=== PATIENT | male | born 1995 | race Caucasian/White ===

== ENCOUNTER 2020-05-12 14:39 | Emergency (ER) | payer OTHER, SELFPAY ==
--- NOTE | ~2020-05-12 | XR_ITS ---
XR ribs LT 2V w CXR 2V DATE: 05/12/2020 15:02 INDICATION: Fall. Left chest abrasion, left rib pain TECHNIQUE: PA and lateral chest. 3 views of the left ribs. COMPARISON: 07/04/2018 bilateral ribs with two-view chest radiograph FINDINGS: Normal heart size. No hilar or mediastinal enlargement. No pulmonary infiltrate or consolid ation, pleural effusion or pulmonary vascular congestion or pneumothorax. No left rib fracture is detected. IMPRESSION: Negative Reviewed, dictated and finalized at location A. IMPRESSION: Negative
--- NOTE | ~2020-05-12 | XR_ITS ---
EXAMINATION: XR hip LT min 3V w AP pelvis EXAM DATE: 05/12/2020 15:02 INDICATION: Fall, left hip pain. TECHNIQUE: Left hip frontal, crosstable lateral and 'frog-leg' projections for interpretation. Fronta l projection pelvis. There is no prior study for comparison. FINDINGS: Smooth left hip femoral head contour, no radiographic evidence of avascular necrosis. Ther e are no acute fractures or dislocations identified. There is no subcutaneous gas. The soft tissue is unremarkable. There are no radiopaque foreign bodies. IMPRESSION: 1. Pelvis, left hip exam without acute osseous findings. Reviewed, dictated and finalized at location A.
[2020-05-12 14:43] VITALS: BP 123/83; PULSE 98; RESP 20; TEMP 35.6; O2SAT 99
--- NOTE | 2020-05-12 14:46 | ED.GENADULT ---
HPI - General Adult General Chief complaint: Unspecified Stated complaint: Fall/L Rib and Side Pain Time Seen by Provider: 05/12/20 14:45 Related Data Allergies Allergy/AdvReac Type Severity Reaction Status Date / Time clotrimazole Allergy Mild Swelling Verified 06/15/19 06:32 tolnaftate Allergy Mild Swelling Verified 06/15/19 06:32 bee Allergy Intermediate rash\ Uncoded 03/14/18 11:12 shellfish Allergy Intermediate rash Uncoded 03/14/18 11:12
--- NOTE | 2020-05-12 16:03 | ED.GENADULT ---
HPI - General Adult General Chief complaint: Unspecified <Denice Ramos PA-C - Last Filed: 05/12/20 16:12> Stated complaint: Fall/L Rib and Side Pain <Denice Ramos PA-C - Last Filed: 05/12/20 16:12> Time Seen by Provider: 05/12/20 14:45 <Denice Ramos PA-C - Last Filed: 05/12/20 16:12> Source: patient <CIRA Bingham Last Filed: 05/12/20 16:12> Mode of arrival: ambulatory <CIRA Bingham Last Filed: 05/12/20 16:12> Limitations: no limitations <CIRA Bingham Last Filed: 05/12/20 16:12> History of Present Illness HPI narrative: Patient presents with chief complaint of abrasion to the left upper chest and left ilium after falling off of his skateboard approximately 2 hours prior to arrival. Patient states that he fell off the sidewalk onto the street, he reports noticing pain immediately to his lower left ribs and felt that the wind was knocked out of him. Patient denies any coughing, shortness of breath, chest pain, head impact, loss of consciousness or changes in mentation vision or hearing. Patient states that he was able to get himself up and ambulate without difficulty. Patient reports the discomfort and tenderness to the lower left ribs and left upper hip brought him to the emergency department to be evaluated as he was at work. Patient denies any past medical history or daily medications. Patient denies any smoking, alcohol use or use of recreational drugs. Patient denies any other injuries or concerns. <Denice Ramos PA-C - Last Filed: 05/12/20 16:12> Related Data Home medications: Home Medications Medication Instructions Recorded Confirmed No Home Medications 05/12/20 05/12/20 <Denice Ramos PA-C - Last Filed: 05/12/20 16:12> Allergies/adverse reactions: Allergies Allergy/AdvReac Type Severity Reaction Status Date / Time clotrimazole Allergy Mild Swelling Verified 06/15/19 06:32 tolnaftate Allergy Mild Swelling Verified 06/15/19 06:32 bee Allergy Intermediate rash\ Uncoded 03/14/18 11:12 shellfish Allergy Intermediate rash Uncoded 03/14/18 11:12 <Denice Ramos PA-C - Last Filed: 05/12/20 16:12> Review of Systems Review of Systems: Narrative: CONSTITUTIONAL: Denies fever, chills, or sweats. EYES: Denies visual changes, redness, or discharge. ENT: Denies rhinorrhea, congestion, sore throat, or otalgia. CARDIOVASCULAR: Denies chest pain, palpitations, or edema. RESPIRATORY: Denies cough or dyspnea. GASTROINTESTINAL: Denies abdominal pain, nausea, vomiting, or diarrhea. GENITOURINARY: Denies dysuria or hematuria. SKIN: Denies rash or itching. MUSCULOSKELETAL: Reports left-sided rib pain and pain to left hip and ilium NEUROLOGIC: Denies headache, numbness, dizziness, or weakness. PSYCHIATRIC: Denies anxiety or depression. <Denice Ramos PA-C - Last Filed: 05/12/20 16:12> PMFSH Past Medical History Medical History: Medical History (Updated 05/12/20 @ 16:12 by Denice Ramos PA-C) No active medical problems <Denice Ramos PA-C - Last Filed: 05/12/20 16:12> Social History Social History: Social History (Updated 05/12/20 @ 16:06 by Denice Ramos PA-C) Smoking status: Never smoker Alcohol use details: none Substance use: never <Denice Ramos PA-C - Last Filed: 05/12/20 16:12> Exam Narrative: Exam Narrative: GENERAL: Well-appearing, well-nourished, and in no acute distress. HEAD: Normocephalic, atraumatic. No hematomas, abrasions or outward signs of injury. EYES: PERRLA and EOMI. ENT: Nares clear, no rhinorrhea or epistaxis. Mucous membranes moist. Oropharynx without tonsillar hypertrophy exudate or other lesions. Bilateral TMs pearly hernandez nonbulging. No hemotympanum NECK: Supple. No adenopathy or masses. Range of motion intact. CHEST: Clear to auscultation. No respiratory distress. No wheezes rales or rhonchi. Abrasions noted to the lateral aspect of left no flail chest noted. P
[2020-05-12 16:12] VITALS: BP 118/75; PULSE 68; RESP 16; O2SAT 100
== END 2020-05-12 16:13 | disposition home or self-care (01) ==
PROVIDERS: Emergency Provider Emergency Medicine; PCP Internal Medicine
DX: S20.211A Contusion of right front wall of thorax, initial encounter (principal); S39.013A Strain of muscle, fascia and tendon of pelvis, initial encounter; V00.131A Fall from skateboard, initial encounter; Y93.51 Activity, roller skating (inline) and skateboarding
CPT/HCPCS: 71046; 71100; 73502; 99284

== ENCOUNTER 2025-05-31 05:41 | Emergency (ER) | payer OTHER, SELFPAY ==
--- NOTE | ~2025-05-31 | XR_ITS ---
Examination: XR chest 1V portable Clinical History: SOB, cough Comparison: 05/12/2020 Technique: Portable AP Findings: Heart size normal. Unilateral haziness left lung likely overlying soft tissue artifact. Otherwise lungs clear. No acute bony abnormality. IMPRESSION: 1. No acute cardiopulmonary findings given portable technique. Reviewed, dictated and finalized at location R.
[2025-05-31 05:44] VITALS: BP 141/95; PULSE 101; RESP 20; TEMP 36.8; O2SAT 99
--- NOTE | 2025-05-31 05:51 | ECG_ITS ---
Test Date: 2025-05-31 06:05:38 Measurements Intervals [place] Rate: 94 P: 65 AK: 145 QRS: 81 QRSD: 93 T: 72 QT: 333 QTc: 418 Interpretive Statements SINUS RHYTHM No previous ECG available for comparison Electronically Signed On 05-31-2025 06:18:28 CDT by Tirso Valle M.D.
[2025-05-31 05:53] VITALS: O2SAT 100
[2025-05-31] MEDS: ALBUTEROL SULFATE NEB 2.5 MG/3 ML INH 10 MG INHALATION (06:09)
[2025-05-31] MEDS: IPRATROPIUM BR 0.02% INH SOLN 0.5 MG/2.5 ML VIAL 2 MG INHALATION (06:10)
[2025-05-31] MEDS: SODIUM CHLORIDE 0.9% IV 1,000 ML 999 ML IV CONT (06:13)
[2025-05-31 06:14] LABS: Hematocrit 48.7 % (42.0-52.0); Hemoglobin 17.0 g/dL (14.0-18.0); Immature Granulocyte Percent A 0.3 % (0-0.5); Lymphocytes Absolute Auto 1.89 K/mm3 (0.9-3.2); Mean Corpuscular HGB Conc 34.9 g/dl (32-36); Mean Corpuscular Hemoglobin 30.3 pg (26-34); Mean Corpuscular Volume 86.8 fl (80-100); Nucleated Red Blood Cells Absolute Auto 0.000 K/mm3 (0.0-0.012); Nucleated Red Blood Cells Perc 0.0 % (0.0-0.2); Platelet Count Result 252 k/mm3 (150-375); Red Blood Count 5.61 M/mm3 (4.6-6.20); White Blood Count 13.3 K/mm3 (4.5-10.0)
[2025-05-31 06:15] VITALS: PULSE 97; RESP 99
[2025-05-31 06:17] VITALS: O2SAT 99
[2025-05-31 06:34] LABS: Alanine Aminotransferase 37 U/L (6-50); Albumin Level 5.4 g/dL (3.5-5.1); Alkaline Phosphatase 81 U/L (38-126); Anion Gap 17 mmol/L (4-12); Aspartate Amino Transferase 63 U/L (17-59); Bilirubin,Total 0.8 mg/dL (0.2-1.3); Blood Urea Nitrogen 8 mg/dL (9-20); Calcium 9.8 mg/dL (8.4-10.2); Carbon Dioxide 23 mmol/L (22-30); Chloride 100 mmol/L (98-107); Estimated Glomerular Filt Rate > 60; Glucose 100 mg/dL (65-110); Lipase 35 U/L (23-300); Magnesium 2.2 mg/dL (1.6-2.3); Potassium 4.0 mmol/L (3.4-5.0); Sodium 140 mmol/L (137-145); Total Protein 9.6 g/dL (6.3-8.2)
--- NOTE | 2025-05-31 06:42 | ED_ITS ---
HPI - General Adult General Chief complaint: Shortness of Breath/Dyspnea Stated complaint: asthma Time Seen by Provider: 05/31/25 05:46 History of Present Illness HPI narrative: Patient is a 29-year-old male who presents to the emergency department this morning complaining of shortness of breath and an asthma exacerbation. Patient states that he has also had this productive cough for the past few days but overnight he got to a point where he felt as though he could not catch his breath. Could not find his rescue inhaler. Patient states that he has struggled with asthma most of his life. Admits to chest tightness as well specially when taking a deep breath. Otherwise denies any fevers or chills at home, no additional symptoms or concerns at this time. Related Data Allergies Allergy/AdvReac Type Severity Reaction Status Date / Time clotrimazole Allergy Mild Swelling Verified 06/15/19 06:32 tolnaftate Allergy Mild Swelling Verified 06/15/19 06:32 bee Allergy Intermediate rash\ Uncoded 03/14/18 11:12 shellfish Allergy Intermediate rash Uncoded 03/14/18 11:12 Review of Systems 2 Review of Systems: All systems are reviewed and are negative unless stated otherwise in the HPI. [facility] Past Medical History Medical History No active medical problems Social History Social History Smoking status: Never smoker Alcohol use details: none Substance use: never Exam 2 Narrative: General: Alert, awake, afebrile, in moderate respiratory distress. HEENT: PERRL, no rhinorrhea, no post nasal drip, oropharynx clear. Neck: Trachea midline, no JVD, no lymphadenopathy. Cardiovascular: Regular rate and rhythm, no murmurs, rubs or gallops, no peripheral edema. Respiratory: Diffuse bilateral inspiratory and expiratory wheezing, tachypnea, moderate respiratory distress. Abdomen: Soft, nontender, nondistended, no rebound, no guarding, no peritoneal signs. Musculoskeletal: No joint swelling or deformity, normal muscle tone. Skin: No rashes or petechia, no signs of infection. Psychiatric: Alert and oriented, normal behavior and judgment for situation. Neurological: Alert and oriented to person, place, and time. Follows all commands. No focal deficits, speech is clear and fluent. Course Vital Signs Vital signs: Vital Signs Temperature 98.2 F 05/31/25 05:44 Pulse Rate 101 H 05/31/25 05:44 Respiratory Rate 20 05/31/25 05:44 Blood Pressure 141/95 H 05/31/25 05:44 Pulse Oximetry 99 05/31/25 05:44 Oxygen Delivery Room Air 05/31/25 05:44 Temperature 98.2 F 05/31/25 05:44 Pulse Rate 97 05/31/25 06:15 Respiratory Rate 99 H 05/31/25 06:15 Blood Pressure 141/95 H 05/31/25 05:44 Pulse Oximetry 99 05/31/25 06:17 Oxygen Delivery Room Air 05/31/25 06:17 Medical Decision Making MDM Narrative Medical decision making narrative: The patient was evaluated by myself in the emergency department. History is obtained from patient who is an independent historian and physical exam was performed. External medical records were reviewed at this time. IV was established and pertinent tests were ordered. Patient was administered an hour long DuoNeb breathing treatment and 125 mg of IV Solu-Medrol. EKG was obtained which revealed sinus rhythm rate 94 beats per minute, no evidence of acute ischemia. EKG was independently interpreted by me and is currently pending official cardiology read. Laboratory results obtained revealing no acute process. Imaging studies obtained included CXR which was independently interpreted by me revealing no acute process, which is pending final radiology interpretation. Differential diagnosis considerations include acute viral syndrome, infectious process such as pneumonia, reactive airway disease/asthma exacerbation. Comorbidities impacting this visit include history of asthma. I have evaluated and discussed social determinants of health with the patient that could potentially impact subsequent diagnosis and treatment plans. On repeat assessment of the patient, reevaluation revealed that the patient is doing well and is in no acute distress. Patient symptoms have improved since he arrived to our emergency department. Repeat vital signs were all reviewed and noted to be stable. Differential diagnosis and treatment plan were discussed with the patient at bedside. Patient agrees with discussion and after shared medical decision making agrees with discharge. All questions were answered to the patient's satisfaction. Patient will follow up with his PCP in 3-5 days. A script for Medrol Dosepak was sent to patient's pharmacy to take as prescribed. Patient was provided with strict return precautions and instructed to return to the emergency department if any new or worsening symptoms develop. The patient was discharged in stable condition. Critical care time of 37 minutes, exclusive of separately performed procedures, necessary for treating or preventing eminent or life-threatening deterioration of patient's condition of acute respiratory distress secondary to asthma exacerbation requiring 1 hour long DuoNeb breathing treatment, focused on patient care provided personally by me and time spent during initial evaluation, physical examination, ordering and performing treatments and interventions, ordering and reviewing laboratory studies, ordering and reviewing radiographic studies, re-evaluation of the patient's condition, evaluation of the patient's response to treatment, and discussion of patient case with multiple consultants. Vital Signs Vital Signs: Vital Signs Temperature 98.2 F 05/31/25 05:44 Pulse Rate 101 H 05/31/25 05:44 Respiratory Rate 20 05/31/25 05:44 Blood Pressure 141/95 H 05/31/25 05:44 Pulse Oximetry 99 05/31/25 05:44 Oxygen Delivery Room Air 05/31/25 05:44 Temperature 98.2 F 05/31/25 05:44 Pulse Rate 97 05/31/25 06:15 Respiratory Rate 99 H 05/31/25 06:15 Blood Pressure 141/95 H 05/31/25 05:44 Pulse Oximetry 99 05/31/25 06:17 Oxygen Delivery Room Air 05/31/25 06:17 Lab Data 05/31/25 06:02 05/31/25 06:02 Labs: Lab Results 05/31/25 Range/Units 06:02 WBC 13.3 H (4.5-10.0) K/mm3 RBC 5.61 (4.6-6.20) M/mm3 Hgb 17.0 (14.0-18.0) g/dL Hct 48.7 (42.0-52.0) % MCV 86.8 (80-100) fl MCH 30.3 (26-34) pg MCHC 34.9 (32-36) g/dl RDW 12.1 (11.5-14.5) % Plt Count 252 (150-375) k/mm3 MPV 9.2 (7.4-10.4) fl Immature Gran % (Auto) 0.3 (0-0.5) % Neut % (Auto) 68.3 (45.5-73.1) % Lymph % (Auto) 14.2 L (18.3-44.2) % Hendricks % (Auto) 12.5 H (2.6-8.5) % Eos % (Auto) 4.1 (0-4.4) % Baso % (Auto) 0.6 (0.2-1.2) % Lymph # (Auto) 1.89 (0.9-3.2) K/mm3 Hendricks # (Auto) 1.7 H (0.1-0.6) K/mm3 Eos # (Auto) 0.5 H (0-0.3) K/mm3 Baso # (Auto) 0.1 (0.0-0.1) K/mm3 Abs Immat Gran (auto) 0.04 H (0.00-0.031) K/mm3 Absolute Neuts (auto) 9.1 H (1.3-6.7) K/mm3 Absolute Nucleated RBC 0.000 (0.0-0.012) K/mm3 Nucleated RBC % 0.0 (0.0-0.2) % Sodium 140 (137-145) mmol/L Potassium 4.0 (3.4-5.0) mmol/L Chloride 100 (98-107) mmol/L Carbon Dioxide 23 (22-30) mmol/L Anion Gap 17 H (4-12) mmol/L BUN 8 L (9-20) mg/dL Creatinine 0.89 (0.7-1.3) mg/dL Estim Creat Clear Calc Not Reportable Estimated GFR > 60 (59 - ) Glucose 100 (65-110) mg/dL Calcium 9.8 (8.4-10.2) mg/dL Magnesium 2.2 (1.6-2.3) mg/dL Total Bilirubin 0.8 (0.2-1.3) mg/dL AST 63 H (17-59) U/L ALT 37 (6-50) U/L Alkaline Phosphatase 81 (38-126) U/L Total Protein 9.6 H (6.3-8.2) g/dL Albumin 5.4 H (3.5-5.1) g/dL Lipase 35 (23-300) U/L Influenza A (RT-PCR) Negative (Negative) Influenza B (RT-PCR) Negative (Negative) RSV (RT-PCR) Negative (Negative) SARS-CoV-2 RNA (RT-PCR) Negative (Negative) Critical Care Time Critical Care Time Critical Care Time: Yes Total Critical Care Time: 37 (Please refer to [facility] for attestation.) Discharge Plan Discharge Clinical Impression: Acute asthma exacerbation, Acute respiratory distress Patient Disposition: Home Condition: Improved Instructions: Antibiotic Form, Asthma (ED) Additional Instructions: Please follow-up with your family doctor within the next 3-5 days. Return to emergency department for any new or worsening symptoms develop. Use prescribed steroids as instructed. Patient Language: Swazi Prescriptions: New methylprednisolone [Medrol ([place]ody)] 4 mg tablets,dose pack See Rx Instructions .ROUTE .COMPLEX Qty: 21 0RF Rx Instructions: for 6 days Follow-up/Referrals: Hussein,Carlos Garcia MD [Primary Care Provider] - 3 Days Time of Disposition: 06:55
[2025-05-31 06:44] LABS: Influenza A QL RT-PCR Negative (Negative); Influenza B QL RT-PCR Negative (Negative); RSV RNA, RT-PCR Negative (Negative); SARS-CoV-2 RNA PCR Negative (Negative)
[2025-05-31 07:16] VITALS: O2SAT 99
[2025-05-31 07:17] VITALS: BP 122/79; PULSE 106; RESP 18; O2SAT 98
== END 2025-05-31 07:19 | disposition home or self-care (01) ==
LOC: ANHED 07:08
PROVIDERS: Emergency Provider Emergency Medicine; PCP Internal Medicine
DX: J45.901 Unspecified asthma with (acute) exacerbation (principal); R06.03 Acute respiratory distress; Z20.822 Contact with and (suspected) exposure to COVID-19
CPT/HCPCS: 36415; 71045; 80053; 83690; 83735; 85025; 87637; 93005; 94640; 96361; 96374; 99284; J2919; J7030